=== PATIENT | female | born 1950 | race Caucasian/White ===

== ENCOUNTER 2020-02-13 15:44 | Emergency (ER) | payer MEDICARE ==
[~2020-02-13] VITALS: Ht 167.6 cm; Wt 64.0 kg
[~2020-02-13 15:44] MED LIST: ATIVAN1 MG PO; CHANTIX0.5 MG PO; DICLOFENAC SODI75 MG PO; HYDROCODON-ACE1 EA11 PO; LIPITOR20 MG PO; LISINOPRIL20 MG PO; LORAZEPAM1 MG PO; MIRAPEX0.25 MG PO; NORVASC10 MG PO; OMEPRAZOLE20 MG PO; PROMETHAZINE12.5 M1 PO; PROPRANOLOL HCL10 MG PO; SEREVENT DISKU1 PUFF INH; SERTRALINE HCL100 MG PO; TIZANIDINE HCL4 M1 PO; ZOLOFT100 MG
--- OUTSIDE RECORDS SUMMARY | 2020-02-13 15:48 | XMS ---
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 Virgie has no Care Guidelines for this patient. Zack VISIT COUNT (12 MO.) 1 [facility] Perez TOTAL 1 NOTE: Visits indicate total known visits. ED/UCC VISIT TRACKING (12 MO.) 02/13/2020 15:45 [facility] [place] TYPE: Emergency COMPLAINT: - WEAKNESS, FALL INPATIENT VISIT TRACKING (12 MO.) No inpatient visits to display in this time frame [id number]
--- NOTE | 2020-02-14 12:39 | EKG ---
[facility] [address] [facility] [place] [address] Signed Marked sinus bradycardia with marked sinus arrhythmia ST \T\ T wave abnormality, consider lateral ischemia Abnormal ECG When compared with ECG of 24-DEC-2018 15:52, T wave inversion now evident in Lateral leads Confirmed by CASTILLO VALENZUELA DO ([id number]) on 02/14/2020 12:39:12 PM Electronically Signed By: CASTILLO VALENZUELA DO 02/14/20 1239 PATIENT NAME: ANDREA SY KATHRYN Electrocardiogram DATE OF : 52 PHYSICIAN: CASTILLO VALENZUELA DO REPORT #: [id number] REPORT IS CONFIDENTIAL AND NOT TO BE RELEASED WITHOUT AUTHORIZATION
== END 2020-02-13 21:40 | disposition short-term general hospital (02) ==
LOC: ED 15:44
DX: S52.501A Unspecified fracture of the lower end of right radius, initial encounter for closed fracture (principal); R55 Syncope and collapse; Z20.828 Contact with and (suspected) exposure to other viral communicable diseases; R00.1 Bradycardia, unspecified; F17.200 Nicotine dependence, unspecified, uncomplicated; W00.0XXA Fall on same level due to ice and snow, initial encounter; Z88.2 Allergy status to sulfonamides; Z79.899 Other long term (current) drug therapy
CPT/HCPCS: 29125; 70450; 72125; 73110; 80053; 81001; 84484; 85025; 93005; 93010; 99285-25; C9803; G0480; J1170; J2405; U0003

== ENCOUNTER 2020-03-01 06:05 | Day surgery (SDC) | payer MEDICARE ==
[~2020-03-01] VITALS: Ht 167.6 cm; Wt 64.0 kg
[2020-03-01] MEDS ORDERED: HYDROCODON-ACE1 EA11 PO (11:33)
--- NOTE | 2020-03-04 07:39 | OR ---
[facility] [address] [place], [place] [address] Signed DATE OF OPERATION: SURGEON: Izaiah Louie MD PREOPERATIVE DIAGNOSIS: Displaced right distal radius fracture. POSTOPERATIVE DIAGNOSIS: Displaced right distal radius fracture. PROCEDURE PERFORMED: Closed reduction and percutaneous pinning of right distal radius. CROSSING GUARD: None. ANESTHESIA: MAC with local. BLOOD LOSS: Minimal. IMPLANTS: Three 1.6 mm K-wires. BRIEF HISTORY: Andrea is a 69-year-old female with pain in her wrist after a fall. She had a displaced angulated distal radius fracture. She was felt to be amenable to closed reduction and pinning. Consent was obtained after discussion of risks and benefits. DESCRIPTION OF PROCEDURE: Once consent was obtained, she was taken to the operating room. After adequate anesthesia, she was left on the day surgery cart and was prepped and draped in a standard sterile fashion. The C-arm was brought in and the fracture was reduced. She still had some dorsal tilt, so I did introduce a 2.0 K-wire into the fracture site using it as I was able to shoe horn the fracture back into a neutral alignment. While holding this, we then passed two pins from the distal radius at the styloid across the fracture site engaging the body of radius proximally. One pin was placed dorsally. Final radiographs showed good reduction and placement of the pins. The pins were then cut and dressed with sterile gauze. The arm was then placed in sterile cast padding and a radial gutter splint was made. She tolerated the procedure well. All sponge, needle, Electronically Signed By: IZAIAH LOUIE MD 03/04/20 0739 PATIENT NAME: ANDREA SY OPERATIVE REPORT DATE OF : 52 REPORT #: [id number] PHYSICIAN: IZAIAH LOUIE MD PCP: KEEGAN MCCLURE MD REPORT IS CONFIDENTIAL AND NOT TO BE RELEASED WITHOUT AUTHORIZATION [facility] [address] [facility] [place], [place] [address] Signed and instrument counts were correct. Izaiah Louie MD BA/MODL /[id number] Copies: ~ Electronically Signed By: IZAIAH LOUIE MD 03/04/20 0739 PATIENT NAME: ANDREA SY OPERATIVE REPORT DATE OF : 52 REPORT #: [id number] PHYSICIAN: IZAIAH LOUIE MD PCP: KEEGAN MCCLURE MD REPORT IS CONFIDENTIAL AND NOT TO BE RELEASED WITHOUT AUTHORIZATION
== END 2020-03-01 12:15 | disposition home or self-care (01) ==
LOC: DS 06:05
PROVIDERS: ATTEND Specialist
PROC: 3E0T33Z Introduction of Anti-inflammatory into Peripheral Nerves and Plexi, Percutaneous Approach (ICD-10-PCS; 2020-03-01)
PROC: 0PSH34Z Reposition Right Radius with Internal Fixation Device, Percutaneous Approach (ICD-10-PCS; principal; 2020-03-01 09:45)
PROC: 3E0T3BZ Introduction of Anesthetic Agent into Peripheral Nerves and Plexi, Percutaneous Approach (ICD-10-PCS; 2020-03-01 09:45)
DX: S52.531A Colles' fracture of right radius, initial encounter for closed fracture (principal); G89.18 Other acute postprocedural pain; I10 Essential (primary) hypertension; E78.00 Pure hypercholesterolemia, unspecified; F32.9 Major depressive disorder, single episode, unspecified; F41.9 Anxiety disorder, unspecified; F41.0 Panic disorder [episodic paroxysmal anxiety]; W19.XXXA Unspecified fall, initial encounter; Z88.2 Allergy status to sulfonamides; Z87.891 Personal history of nicotine dependence; Z79.899 Other long term (current) drug therapy; Z79.1 Long term (current) use of non-steroidal anti-inflammatories (NSAID); Z20.828 Contact with and (suspected) exposure to other viral communicable diseases
CPT/HCPCS: 01820; 64417; 73100; 76942; C9803; J0690; J1100; J2001; J2250; J2704; J2795; J7121; U0003

== ENCOUNTER 2020-11-18 08:11 | Emergency (ER) | payer MEDICARE ==
[~2020-11-18] VITALS: Ht 167.6 cm; Wt 64.0 kg
--- OUTSIDE RECORDS SUMMARY | 2020-11-18 08:14 | XMS ---
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 Virgie has no Care Guidelines for this patient. Zack VISIT COUNT (12 MO.) 2 WAQAS Perez TOTAL 2 NOTE: Visits indicate total known visits. 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 Bradycardia, unspecified 1. Sick sinus syndrome 2. Unspecified fracture of shaft of right ulna, initial encounter for closed fracture 3. Fall on same level, unspecified, initial encounter 4. Syncope and collapse 5. Hypertensive urgency 6. Essential (primary) hypertension 7. Anxiety disorder, unspecified 8. Major depressive disorder, single episode, unspecified 9. Nicotine dependence, cigarettes, uncomplicated 10. Hyperlipidemia, unspecified 11. Allergy status to sulfonamides 12. 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
[2020-11-18] MEDS ORDERED: BACLOFEN20 MG PO (08:40)
== END 2020-11-18 11:37 | disposition home or self-care (01) ==
LOC: ED 08:11
DX: R53.1 Weakness (principal); I10 Essential (primary) hypertension; F17.200 Nicotine dependence, unspecified, uncomplicated; Z88.2 Allergy status to sulfonamides; Z79.899 Other long term (current) drug therapy; W18.30XA Fall on same level, unspecified, initial encounter
CPT/HCPCS: 70450; 71046; 80053; 81001; 85025; 99285-25

== ENCOUNTER 2021-01-19 16:26 | Emergency (ER) | payer MEDICARE ==
[~2021-01-19] VITALS: Ht 167.6 cm; Wt 66.7 kg
[~2021-01-19 16:26] MED LIST changes: +BACLOFEN20 MG PO
--- OUTSIDE RECORDS SUMMARY | 2021-01-19 16:30 | XMS ---
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 Zack VISIT COUNT (12 MO.) 3 WAQAS Perez TOTAL 3 NOTE: Visits indicate total known visits. ED/UCC VISIT TRACKING (12 MO.) 01/19/2021 16:27 [facility] [place] TYPE: Emergency COMPLAINT: - ALTERED MENTAL STATUS 11/18/2020 08:12 [facility] [place] TYPE: Emergency COMPLAINT: - FALL, ALTERED MENTAL STATUS DIAGNOSES: - Allergy status to sulfonamides - Essential (primary) hypertension - Weakness - Fall on same level, unspecified, initial encounter - Nicotine dependence, unspecified, uncomplicated - Disorientation, unspecified - Other retirement (current) drug therapy 02/13/2020 15:45 [facility] [place] TYPE: Emergency COMPLAINT: - WEAKNESS, FALL DIAGNOSES: - Unspecified fracture of the lower end of right radius, initial encounter for closed fracture - Other retirement (current) drug therapy - Pain in right wrist - Nicotine dependence, unspecified, uncomplicated - Fall on same level due to ice and snow, initial encounter - Allergy status to sulfonamides - Allergy status to sulfonamides - Bradycardia, unspecified - Syncope and collapse - Contact with and (suspected) exposure to other viral communicable diseases INPATIENT VISIT TRACKING (12 MO.) 02/13/2020 23:04 Dalton [facility] TYPE: Medical Surgical COMPLAINT: - SYMPTOMATIC BRADYCARDIA [...] 11. Allergy status to sulfonamides 12. Other retirement (current) drug therapy [id number]
[2021-01-19] MEDS ORDERED: K-TAB ER20 MEQ PO (18:49)
[2021-01-19] MEDS ORDERED: ONDANSETRON ODT8 MG PO (19:02)
== END 2021-01-19 22:21 | disposition home or self-care (01) ==
LOC: ED 16:26
DX: K52.9 Noninfective gastroenteritis and colitis, unspecified (principal); E87.6 Hypokalemia; I10 Essential (primary) hypertension; E78.00 Pure hypercholesterolemia, unspecified; F17.200 Nicotine dependence, unspecified, uncomplicated; Z95.0 Presence of cardiac pacemaker; Z90.12 Acquired absence of left breast and nipple; Z90.710 Acquired absence of both cervix and uterus; Z88.2 Allergy status to sulfonamides; Z79.899 Other long term (current) drug therapy
CPT/HCPCS: 80053; 81001; 82140; 85025; 96374; 96375; 99284-25; J2405; J3480; J7121

== ENCOUNTER 2021-05-30 11:44 | Inpatient (IN) | payer MEDICARE ==
[~2021-05-30] VITALS: Ht 167.6 cm; Wt 60.7 kg
[~2021-05-30 11:44] MED LIST changes: +K-TAB ER20 MEQ PO; +ONDANSETRON ODT8 MG PO
--- OUTSIDE RECORDS SUMMARY | 2021-05-30 11:48 | XMS ---
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 Zack VISIT COUNT (12 MO.) Ananth Perez TOTAL 3 NOTE: Visits indicate total known visits. 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 [place] TYPE: Emergency COMPLAINT: - FALL, ALTERED MENTAL STATUS DIAGNOSES: - Allergy status to sulfonamides - Essential (primary) hypertension - Weakness - Fall on same level, unspecified, initial encounter - Nicotine dependence, unspecified, uncomplicated - Disorientation, unspecified - Other custodial (current) drug therapy INPATIENT VISIT TRACKING (12 MO.) No inpatient visits to display in this time frame [id number]
[2021-05-30] MEDS ORDERED: ATORVASTATIN CA20 MG PO (16:33)
[2021-05-30] MEDS ORDERED: FLUTICASONE-SA1 EAC4 INH (16:34)
[2021-05-30] MEDS ORDERED: QUETIAPINE FUMA50 MG PO (16:35)
[2021-05-30] MEDS ORDERED: AMLODIPINE BESYL5 MG PO (16:36)
--- NOTE | 2021-05-30 17:48 | NUR ---
PATIENT ARRIVED VIA STRETCHER FROM ER AT 1625 WITH ANDREA VIGIL. PATIENT MOVED HEERSELF OVER TO THE HOSPITAL BED. 1 LITER LR OVER 1HR IV STARTED. IV PROTONIX AND ZOFRAN GIVEN FOR NAUSEA. TYLENOL AND GI COCKTAIL GIVEN FOR 9/10 ABD PAIN. BOWEL TONES ACTIVE, LUNGS ARE CLEAR, SKIN IS INTACT WITH SCAB TO LEFT KNEE. PATIENT IS ALERT AND ORIENTED AT THIS TIME AND ALL ADMIT DATA GIVEN BY PATIENT AND HER GRANDDAUGHTER JHONNY WHO IS PATIENT'S CAREGIVER AND CONTACT. AWAITING TO SEE IF TYLENOL AND GI COCKTAIL HELP PAIN AT ALL. PATIENT INSTRUCTED PLUSH BRUSHER LIGHT AND TV REMOTE. CALL LIGHT IS IN REACH
--- NOTE | 2021-05-30 18:24 | NUR ---
PATIENT'S LAC IV LOOKING A LITTLE FLUFFY AFTER 1L LR BOLUS. 2ND 20G IV STARTED BY ANDREA GUEVARA IN THE RAC AND NEW MAINLINE FLUIDS D5LR AT 125MLS/HR SATRED IN RAC IV. PATIENT SAYS HER PAIN HAS DROPPED TO A 5/10 IN HER ABD AND PATIENT SAYS,"I FEEL COMFORTABLE NOW". PATIENT IMPULSIVE AND TRIES TO GET UP WITHOUT CALLING OR ASSISTANCE. BED ALARM IS NOW ON. PATIENT WAS UP TO THE [facility] COMMODE AND VOIDED 200MLS AND IS BACK IN BED AT THIS TIME. CALL LIGHT IN REACH.
--- NOTE | 2021-05-30 19:05 | NUR ---
BEDSIDE REPORT RECEIVED FROM OFFGOING RNDEMAR. PT RESTING IN BED WITH EYES CLOSED, WAKES EASILY. PARTICPATES IN REPORT. DENIES NEEDS AT THIS TIME. BED ALARM ACTIVE. CALL LIGHT IN REACH.
--- NOTE | 2021-05-30 19:48 | NUR ---
PT ASSESSMENT COMPLETE. PT RATES ABD 8/10 TO ABD, DESCRIBES AT PRESSURE IN THE ABD. DENIES NAUSEA. DENIES SOB. PT ORIENTED, DISCUSSING HER LIFE AND HISTORY OF PRESENT ILLNESS WITH THIS DIRECTOR TRUST. BT'S ACTIVE. PT REPORTS ABD TENDER TO PALPATION. IV FLUSHED X 2, PATENT, WNL. PT UP TO BSC WITH 1 PA AND BACK TO BED. TOLERATED WELL. PT DENIES FURTHER NEEDS AT THIS TIME. BED ALARM ACTIVE. CALL LIGHT IN REACH.
--- NOTE | 2021-05-30 19:50 | NUR ---
NOTIFIED OF PT REPORTS OF CONTINUED ABD PAIN AND REQUEST FOR HOME MEDS.
--- NOTE | 2021-05-30 21:15 | NUR ---
BUSINESS LIBRARIAN AND BEAM CARRIER HAULER PUSHER AT BEDSIDE FOR EKG. PTS DAUGHTER PRESENT AT PTS BEDSIDE. UPDATE PROVIDED. PT DENIES FURTHER NEEDS AFTER PROCEDURE FINISHED. SOCIAL SERVICES ANALYST PRESENT FOR BLOOD DRAW. CALL LIGHT IN REACH. BED ALARM ACTIVE.
--- NOTE | 2021-05-30 23:38 | NUR ---
BED ALARM SOUNDING. 1PA TO BSC TO VOID 250 ML YELLOW URINE. PT ABLE TO DO OWN CORIN CARE. GAIT WEAK. BACK TO BED, LISS WELL. DENIES FURTHER NEEDS. BED ALARM FOR SAFETY. CALL LIGHT IN REACH.
--- NOTE | 2021-05-31 00:10 | NUR ---
PT RESTING IN BED WITH EYES CLOSED. DOES NOT WAKE WHEN GAME DESIGNER/CREATIVE DIRECTOR ENTERS THE ROOM. CALL LIGHTIN REACH. BED ALARM ACTIVE.
--- NOTE | 2021-05-31 01:33 | NUR ---
PT UTLIZIES CALL LIGHT, REQUESTS TO USE THE BATHROOM. PT UP TO BSC AND BACK TO BED WITH 1 PA, TOLERATED WELL. PT ASSESSMENT COMPLETE. PT STATES THAT ABD PAIN IS SIGNIFICANTLY IMPROVED FROM EARLIER. DENIES NAUSEA OR SOB. PT DROWSY THROUGHOUT ASSESSMENT. ABD TENDER TO PALPATION. IVF INFUSING ORDERED. PT DENIES FURTHER NEEDS. CALL LIGHT IN REACH. BED ALARM ACTIVE.
--- NOTE | 2021-05-31 03:00 | NUR ---
PT UTLIZES CALL LIGHT, REQUESTS ATIVAN. PT REPORTS AXIETY, INABILITY TO SLEEP. PRN ADMINISTERED. SEE EMAR. PT DENIES FURTHER NEEDS. CALL LIGHT IN REACH.
--- NOTE | 2021-05-31 04:00 | NUR ---
PT RESTING IN BED WITH EYES CLOSED. RESPIRATIONS EVEN AND UNLABORED. PT APPEARS TO BE SLEEPING. CALL LIGHT IN REACH. BED ALARM ACTIVE.
--- NOTE | 2021-05-31 07:30 | NUR ---
SHIFT REPORT GIVEN TO THIS RN BY ANDREA BERNARD. PATIENT RESTING QUIETLY ON HER RIGHT SIDE, EYES ARE CLOSED, RESPIRATIONS ARE REGULAR AND EVEN, BED ALARM IS ON, AND CALL LIGHT IS IN REACH. PATIENT HAS NO NOTED CARE NEEDS AT THIS TIME.
--- NOTE | 2021-05-31 09:03 | NUR ---
PATIENT HAS C/O 9/10 ABD PAIN AND NAUSEA. SIVP ZOFRAN GIVEN AND PO TYLENOL AND OXYCODONE GIVEN. PATIENT IS UP IN THE BEDSIDE ARMCHAIR AT THIS TIME TRYING TO DRINK A LITTLE BREAKFAST. PATIENT HAS NO OTHER CARE NEEDS AT THIS TIME AND CALL LIGHT IS IN REACH.
--- NOTE | 2021-05-31 09:20 | NUR ---
Spoke with Trinidad. She states she lives in [place] in a 3 story home. She only uses the main floor and there are no steps. She states her granddau modesto lives with her and her spouse and is the caregiver. Granddaughter provides full care. Pt does states she drinks large amounts of alcohol. She does agree to speak with KANDY and I called the Crisis line and building insulation installerfield contact person will visit her today. Pt does not want to go to a SNF for rehab. Would prefer to have HH in her home if she needs PT. States she was in [facility] 1 year ago and does not want to go back. Would consider a different SNF.
--- NOTE | 2021-05-31 09:38 | NUR ---
THIS RN RECEIVED NEW ORDERS FOR PO K+ FOR PATIENT WHICH WAS GIVEN ALONG WITH SOME MAALOX AND HER CARAFATE. PATIENT SAYS HER ABD PAIN IS DOWN TO ABOUT 7/10 AT THIS TIME. CALL LIGHT IN REACH AND BED ALARM ON. PATIENT HAS NO OTHER CARE NEEDS AT THIS TIME. PATIENT'S NAUSEA IS ALSO GONE.
--- NOTE | 2021-05-31 10:18 | NUR ---
PATIENT'S PAIN IS DOWN TO 6/10 AT THIS TIME AND SHE IS FAIRLY COMFORTABLE AT THE MOMENT. SHIMA KIMBALL NROOM WITH PATIENT DOING CARES AT THIS TIME. CALL LIGHT IN REACH AND BED ALARM IS ON.
--- NOTE | 2021-05-31 10:19 | NUR ---
PATIENT IN BED RESTING. VITALS AND I&O'S CHARTED. CALL LIGHT IN REACH. NO FURTHER NEEDS AT THIS TIME.
--- NOTE | 2021-05-31 11:20 | NUR ---
PATIENT CALLED HAVING 10/10 ABD PAIN AND EXTREMELY ANXOIUS. PATIENT GIVEN 1MG PO ATIVAN FOR THE ANXIETY AND THIS RN TALKED WITH ABOUT PATIENT'S PAIN PATIENT IS CRYING AND I HAVE NO OTHER MEDICATIONS TO GIVE HER AT THIS TIME. IS ORDERING ABD CT AND ORDERING A GI COCKTAIL WHICH SEEMED TO HELP THE PATIENT YESTERDAY. PATIENT INFORMED MEDICATION WILL BE COMING SHORTLY. CALL LIGHT IN REACH.
[2021-05-31] MEDS ORDERED: BACLOFEN20 MG PO (11:35)
[2021-05-31] MEDS ORDERED: DICLOFENAC SODI75 MG PO (11:35)
--- NOTE | 2021-05-31 11:36 | NUR ---
THIS RN GAVE PATIENT A GI COCKTAIL AND THE PAIN IN HER STOMACH IS GETTING BETTER. PATIENT ALSO GIVEN ORAL DYE IN WATER FOR HER CT SCAN AT 1330. CALL LIGHT IN REACH AND BED ALARM IS ON. PATIENT HAS NO OTHER CARE NEEDS FROM THIS RN AT THIS TIME.
--- NOTE | 2021-05-31 11:36 | NUR ---
MED REC COMPLETED
--- NOTE | 2021-05-31 11:41 | NUR ---
PT ALERT, ORIENTED-SPOKE IN QUIET VOICE. PT WOULD LIKE TO VISIT WITH FR ALLEN TODAY. WILL INFORM HIM. EARLE LUNA, LEFT G.POST. WILL FOLLOW
--- NOTE | 2021-05-31 11:56 | NUR ---
THIS RN 1PA pT UP TO THE BEDSIDE COMMODE AND BACK TO BED AFTER PATIENT VOIDED. PATIENT STILL EXTREMELY UNSTEADY ON HER FEET. BED ALARM IS BACK ON AND CALL LIGHT IS IN REACH. PATIENT HAS NO OTHER CARE NEEDS AT THIS TIME.
--- NOTE | 2021-05-31 12:43 | NUR ---
SECOND GASTROGRAFIN IN GRAPE JUICE GIVEN. PATIENT HAS BEEN TAKING PO WELL AND HER PAIN IS CONTROLLED AT THIS TIME. GRANDDAUGHTER IS HERE VISITING. CALL LIGHT IS IN REACH.
--- NOTE | 2021-05-31 13:55 | NUR ---
LUCIANA IS BACK FROM CT. IV RECONNECTED. PATIENT UP TO THE BSC 1PA WITH LIQUID STOOL AND URINE. PATIENT BACK IN BED. BED ALARM ON. PATIENT'S PAIN IS DOWN TO 4/10 AND SHE IS NOT NAUSEATED AT THIS TIME. CALL LIGHT IS IN REACH. FILLED OUT SOME PAPERWORK FOR PATIENT'S GRANDDAUGHTER SKIEE AND THIS RN LEFT IT IN THE PATIENT'S ROOM ON THE BEDSIDE DRESSER.
--- NOTE | 2021-05-31 13:55 | NUR ---
PATIENT UP TO BSC AND BACK TO SITTING ON EDGE OF BED. IMAGINE HERE TO TAKE HER TO CT. VITALS AND I&O'S DONE.
--- NOTE | 2021-05-31 14:34 | NUR ---
pT BED ALARM GOING OFF, TRYING TO GET OUT OF BED. UP TO BSC, UNSTEADY GAIT. LIQUID BM NOTED, BACK TO BED, COOPERATIVE, BED ALARM ON
--- NOTE | 2021-05-31 15:00 | NUR ---
Spoke with KANDY about another pt, updated by Peer, Trinidad refused their visit when they arrived to speak with her.
--- NOTE | 2021-05-31 15:17 | NUR ---
THIS RN 1PA TO THE BED SIDE COMMODE AND BACK TO BED WITH BED ALARM ON. PATIENT VOIDED A SMALL AMOUNT AND HAD MORE SPEARS LIQUID BROWN STOOL WITH A FEW CHUNCKS. PATIENT CALL LIGHT IS IN REACH. PATIENT HILL NO FURTHER NEEDS AT THIS TIME.
--- NOTE | 2021-05-31 15:45 | NUR ---
PATIENT IN BED, AWAKE, PRETTY ALERT AND WATCHING TV. SHE IS ON A CLEAR LIQUID DIET. PATIENT LIVES WITH HER AND HER GRANDDAUGHTER HELPS THEM. SHE HAS NOT EATEN ANYTHING SINCE FRIDAY 05/26. SHE HAS A HISTORY OF DRINKING 2 SHOTS OF HARD LIQUOR DAILY. SHE IS NOT A MORNING PERSON SO RARELY EATS BREAKFAST. SHE WILL DRINK PEPSI IN THE MORNING. SOMETIMES DOES NOT EAT LUNCH BUT IF SHE DOES IT MIGHT BE A BOLOGNA SANDWICH. DINNER IS HER BIGGEST MEAL. SHE DOES NOT SNACK MUCH. PATIENT HAS NO TEETH, HER UPPER DENTURES ARE AT HOME. SHE ONLY HAS 8 BOTTOM TEETH. PATIENT STATES HER WEIGHT IS NORMALLY 144-146 LBS. SHE WEIGHED 133 LBS ON ADMIT. SHE APPEARS TO MEET CRITERIA FOR ACUTE MALNUTRITION DUE TO POOR PO INTAKE (<25% OF NORMAL INTAKE) THE PAST 5 DAYS AND ~11-13 LB WEIGHT LOSS. SHE WILL NEED EASY TO CHEW FOODS DUE TO NO UPPER TEETH AND ONLY 8 BOTTOM TEETH. WILL SEE HOW PATIENT DOES HER DIET ADVANCES. WILL CONTINUE TO MONITOR.
--- NOTE | 2021-05-31 16:28 | NUR ---
THIS PATIENT CALLED AND WANTED SOMETHING TO EAT. PUDDING GIVEN TO PATIENT WITH HER EVENING MEDS. PATIENT HAS NO OTHER CARE NEEDS AT THIS TIME. BED ALARM ON AND CALL LIGHT IS IN REACH.
--- NOTE | 2021-05-31 18:00 | NUR ---
PATIENT WALKED INTO THE BATHROOM WITH ANDREA GUEVARA AND BACK TO BED. PATIENT IS GETTING MORE STEADY. PATIENT ATE ALL HER PREVIOUS PUDDING ANS ASKED THIS RN FOR SOME MORE, WHICH WAS GIVEN. PAIN AND NAUSEA ARE CONTRLLED AT THIS TIME. PATIENT HAD NO OTHE CARE NEEDS. CALL LIGHT IS IN REACH AND BED ALARM IS ON.
--- NOTE | 2021-05-31 18:14 | NUR ---
PATIENT SITTING UP IN BED WATCHING TV. VITALS AND I&O'S CHARTED. CALL LIGHT IN REACH. NO FURTHER NEEDS AT THIS TIME.
--- NOTE | 2021-05-31 19:28 | NUR ---
REPORT RECEIVED FROM DAY SHIFT RN. PT LYING IN BED ALERT AND ORIENTED. DENIES NEEDS AT THIS TIME. WHITE BOARD UPDATED. CALL LIGHT IN REACH. BED ALARM FOR SAFETY.
--- NOTE | 2021-05-31 20:11 | NUR ---
CALL LIGHT ANSWERED. PT REPORTS 10/10 HEADACHE AND BACK PAIN. PRN ADMIN PER EMAR. FAMILY AT BEDSIDE. NO FURTHER NEEDS.
--- NOTE | 2021-05-31 20:27 | NUR ---
CALL LIGHT ANSWERED. SBA TO RESTOOM FOR VOID AND BACK TO BED. INCONTINENCE IN ATTENDS. ATTENDS CHANGED. IVF INFUSING WNL. BED ALARM ON. pt DENIES ADDITIONAL NEEDS. CALL LIGHT NEXT TO pt.
--- NOTE | 2021-05-31 21:45 | NUR ---
EVENING ASSESSMENT COMPLETE. SCHEDULED MEDS ADMINISTERED PER EMAR. PT REPORTS HEADACHE/BACK PAIN IMPROVED. DENIES NAUSEA. ASSISTED TO REPOSITION IN BED. IVF INFUSING WNL. PT DENIES QUESTIONS OR CONCERNS. CALL LIGHT IN REACH. BED ALARM FOR SAFETY.
--- NOTE | 2021-06-01 00:50 | NUR ---
PT RESTING IN BED WITH EYES CLOSED LYING ON RIGHT SIDE. RESPIRATIONS EVEN. BED ALARM ON.
--- NOTE | 2021-06-01 01:40 | NUR ---
PATIENT CALLED TO USE THE BATHROOM. SBA. PATIENT IS BACK IN BED. VOIDED 350ML. BED ALARM ON FOR SAFETY. NO OTHER NEEDS AT THIS TIME. CALL LIGHT WITHIN REACH.
--- NOTE | 2021-06-01 02:16 | NUR ---
IV PUMP ALARMING. NEW BAG IVF INFUSING PER ORDER. PT DENIES PAIN. REPORTS NAUSEA. PRN FOR N/V ADMIN PER EMAR. ASSESSMENT COMPLETE. NO FURTHER NEEDS. CALL LIGHT IN REACH. BED ALARM FOR SAFETY.
--- NOTE | 2021-06-01 03:57 | NUR ---
PT RESTING IN BED WITH EYES CLOSED. RESPIRATIONS EVEN. BED ALARM FOR SAFETY.
--- NOTE | 2021-06-01 04:26 | NUR ---
TAKING OVER CARE FROM PREVIOUS RN. PT IN BED, LIGHTS OUT, RESP EVEN AND UNLABORED, LAYING ON HER BACK/RIGHT SIDE. IV INFUSING PER ORDER.
--- NOTE | 2021-06-01 06:58 | NUR ---
VS DONE NEAR 0640. PT DENIED NEEDING TO USE BATHROOM, DID TAKE MEDICATION. NO OTHER NEEDS AT THIS TIME. BEDALARM PLACED.
--- NOTE | 2021-06-01 07:25 | NUR ---
THIS RN RECEIVED SHIFT REPORT FROM ANDREA ANDRADE. THIS RN WENT IN TO SEE PATIENT. PATIENT'S PAIN IS 4/10 AT THIS TIME AND IS CONTROLLED. AM ASSESSMENT COMPLETE. PATIENT DENIES ANY CARE NEEDS AT THIS TIME AND CALL LIGHT IS IN REACH. BED ALARM IS ON.
--- NOTE | 2021-06-01 08:44 | NUR ---
PATIENT UP TO BR FOR VOID WITH SBA AND BACK TO BED PER PATIENT REQUEST FOR BREAKFAST. LINEN CHANGED. FRESH ICE WATER PROVIDED. FACE AND HANDS WASHED. PATIENT "POSSIBLY" WANT TO SHOWER TODAY.. BUT STATES SHE WOULD RATHER SHOWER AT HOME. CALL LIGHT IN EASY REACH, BED ALARM ON FOR SAFETY
--- NOTE | 2021-06-01 09:35 | NUR ---
PATIENT CALLED AND IS HAVING 9/10 HILL/ABD PAIN. PO OXYCODONE AND TYELNOL GIVEN. PATIENT ALSO VERY ANXIOUS SO 1MG ATIVAN GIVEN. PATIENT ALSO NAUSEATED SO SIVP ZOFRAN GIVEN. ALL OTHER AM MEDS GIVEN AND MG+ RIDER STARTED. PATIENT DENIED ANY OTHER CARE NEEDS AT THIS TIME. CALL LIGHT IS IN REACH.
--- NOTE | 2021-06-01 11:08 | NUR ---
PATIENT'S HILL IS GONE, BUT ABD PAIN STILL 4/10. THIS RN 1PSBA WITH QUAD CANE FOR PATIENT ASSISTED TO THE RESTROOM WHERE PATIENT VOIDED THEN STOOD AT THE SINK AND BRUSHED HER TEETH THEN WALKED BACK TO BED. BED ALARM IS ON AND CALL LIGHT IS IN REACH. PATIENT HAS NO OTHER CARE NEEDS AT THIS TIME.
--- NOTE | 2021-06-01 13:15 | NUR ---
PATIENT JUST FINISHED TALKING WITH MARIEL FROM CASE MANAGEMENT/DISCHARGE PLANNING. PATIENT DOES NOT WANT TO WORK WITH KANDY ABOUT HER DRINKING AND DOES NOT WANT TO GO ANYWHERE FOR REHAB. PATIENT RESTING IN BED AND DID NOT EAT ANY OF HER LUNCH. PATIENT DENIES ANY CARE NEEDS AT THIS CALL LIGHT IS IN REACH.
--- NOTE | 2021-06-01 13:45 | NUR ---
Spoke with Trinidad and she states she just wants to go home. Will go home with her spouse and granddaughter will care for them. Discussed if she can walk safely and she denies issue. Per RN she is a 1 person assist. Will check with Dr. Curran to see if he would like a PT eval.
--- NOTE | 2021-06-01 13:45 | NUR ---
PATIENT CALLED HAVING 9/10 ABD PAIN AND NAUSEA AGAIN WITH A HILL. 10MG SIVP COMPAZINE GIVENA AND A GI COCKTAIL WHICH HAS REALLY HELPED HE IN PAST DOSES. THIS RN 1PSBA AND QUAD CANE TO THE RESTROOM AND BACK TO BED. BED ALARM IS ON. PATIENT DENIES ANY OTHER CARE NEEDS AT THIS TIME. CALL LIGHT IS IN REACH.
--- NOTE | 2021-06-01 15:58 | NUR ---
PATIENT CALLED AND THIS RN IN AND 1PSBA PATIENT WITH QUAD CANE INTO THE BATHROOM TO VOID AND HAVE BM AND BACK TO BED. 1600 MEDS GIVEN. BED ALARM IS ON. AFTERNOON ASSESSMENT COMPLETE. CALL LIGHT IN REACH AND PATIENT'S ABD PAIN CONTROLLED AT A 4/10.
--- NOTE | 2021-06-01 17:50 | NUR ---
COMING IN TO SEE PATIENT. DISCUSSED WITH THAT PATIENT HAS JUST NOT WANTED TO EAT. SAID TO DC THE IV FLUIDS FOR NOW AND ENCOURAGE THE PATIENT TO EAT. DINNER TRAY IS HERE AND PATIENT DOES NOT LIKE MUSHROOM SOUP SO KITCHEN WAS CALL FOR SOME CHICKEN NOODLE WHICH THEY ARE SENDING UP. PATIENT HAS ALREADY EATEN HER ICECREAM AND PATIENT'S GREATER [facility] AARIVING TO VISIT. IV FLUIDS WERE DC'D AND RAC IV WAS LEAKING SO IT WAS REMOVED INTACT WELL. PATIENT STILL HAS A NS LOCKED LAC IV IN PLACE. INFORMED THIS RN LONG PATIENT EATS TONIGHT AND EATS IN THE MORNING SHE CAN GO HOME TOMORROW. PATIENT LOOKING FORWARD TO THIS. CALL LIGHT IS IN REACH.
--- NOTE | 2021-06-01 17:57 | NUR ---
Intake and output completed, Patient requested pain medications. Oxycodone given.
--- NOTE | 2021-06-01 19:30 | NUR ---
SHIFT REPORT RECEIVED FROM DEMAR MENDEZ. PT RESTING IN BED. NO NEEDS AT THIS TIME. CALL LIGHT IN REACH.
--- NOTE | 2021-06-01 20:30 | NUR ---
PT CALLED, SBA TO BATHROOM WITH FWW. INDEPENDENT WITH TRANSFERS IN AND OUT OF BED. ALL PERSONAL SUPPLIES WITHIN REACH. NO OTHER NEEDS. FAMILY MEMBER AT BEDSIDE.
--- NOTE | 2021-06-01 21:15 | NUR ---
ASSESSMENT COMPLETED. DAUGHTER IN ROOM. GCS 15, A&O X 4 BUT FORGETFUL. LUNGS CLEAR, HEART TONES REGULAR. ABD SOFT, TENDER, BOWEL TONES ACTIVE. CMS INTACT. SCAB NOTED ON LEFT KNEE. SCATTERED BRUISING NOTED. IV WNL. CDI, FLUSHED WELL. SCHEDULED MEDS PROVIDED. NO OTHER NEEDS. CALL LIGHT IN REACH.
--- NOTE | 2021-06-01 22:29 | NUR ---
PT REPORTS FEELING ANXIOUS, PRN ANXIETY MED PROVIDED. NO OTHER NEEDS. CALL LIGHT IN REACH. BED ALARM ON.
--- NOTE | 2021-06-01 23:54 | NUR ---
PT RESTING IN BED, EYES CLOSED. RR EVEN, UNLABORED. BED ALARM ON, CALL LIGHT IN REACH.
--- NOTE | 2021-06-02 01:53 | NUR ---
PT RESTING INBED, EYES CLOSED. RR EVEN, UNLABORED. CALL LIGHT IN REACH. BED ALARM ON.
--- NOTE | 2021-06-02 04:24 | NUR ---
ASSESSMENT COMPLETED. IVs WNL. PT DENIES PAIN AND NAUSEA. ABD SOFT, TENDER, BOWEL TONES ACTIVE. ICE WATER PROVIDED. NO OTHER NEEDS. CALL LIGHT IN REACH.
--- NOTE | 2021-06-02 06:32 | NUR ---
VS AND I&O COMPLETED. SCHEDULED MED PROVIDED. PT DENIES NAUSEA AND PAIN AT THIS TIME. PT UP TO BR AND BACK TO BED, SBA FWW. NO OTHER NEEDS. CALL LIGHT IN REACH.
--- NOTE | 2021-06-02 07:46 | NUR ---
Bedside shift report deferred. Patient is sleeping at this time. Shift report completed outside the room. She is potentially going home if she is able to eat her breakfast this AM, have nausea controlled, and able to ambulate safely with her walker
--- NOTE | 2021-06-02 09:50 | NUR ---
Zofran IV given for nausea, along with AM medications at the patient request. Updated her on the plan of care for today, with a potential discharge on henry.
--- NOTE | 2021-06-02 11:30 | NUR ---
Spoke with Trinidad. She is feeling better and plans on dc to home with her spouse. Her granddaughter and her boyfriend live with them. There is also a friend who lives with them at times. Pt plans on stopping alcohol and she has discussed with her spouse and he has agreed to stop with her. We did discuss DTs as per pt, spouse drinks all day long. I gave her the card for KANDY and encouraged her to call if they have any problems when they stop alcohol. I also suggested she speak with family that buy the alcohol and ask them to stop.
--- NOTE | 2021-06-02 11:41 | EKG ---
[facility] [address] [facility] [place] [address] Signed Normal sinus rhythm Normal ECG When compared with ECG of 13-FEB-2020 15:46, Vent. rate has increased BY 25 BPM T wave inversion no longer evident in Lateral leads Confirmed by KEVIN YARBROUGH MD ([id number]) on 06/02/2021 11:41:34 AM Electronically Signed By: KEVIN YARBROUGH MD 06/02/21 1141 PATIENT NAME: KERRIEANDREA Electrocardiogram DATE OF : 52 PHYSICIAN: KEVIN YARBROUGH MD REPORT #: [id number] REPORT IS CONFIDENTIAL AND NOT TO BE RELEASED WITHOUT AUTHORIZATION
--- NOTE | 2021-06-02 11:42 | EKG ---
[facility] [address] [facility] [place], [place] [address] Signed Normal sinus rhythm Normal ECG No previous ECGs available Confirmed by KEVIN YARBROUGH MD ([id number]) on 06/02/2021 11:42:02 AM Electronically Signed By: KEVIN YABRROUGH MD 06/02/21 1142 PATIENT NAME: ANDREA SY KATHRYN Electrocardiogram DATE OF : 52 PHYSICIAN: KEVIN YARBROUGH MD REPORT #: [id number] REPORT IS CONFIDENTIAL AND NOT TO BE RELEASED WITHOUT AUTHORIZATION
--- NOTE | 2021-06-02 14:15 | NUR ---
Tylenol given for pain in her back. No additional needs at this time.
--- NOTE | 2021-06-02 15:45 | NUR ---
1600 Medications given, advised the patient that in was too early for pain medications at this time, she verbalized understanding and has no additional needs at this time.
--- NOTE | 2021-06-02 16:10 | NUR ---
Patient ambulated with the FWW approximately 200 ft. C/O back pain now since she ambulated, will give pain medication.
--- NOTE | 2021-06-02 17:18 | NUR ---
patient ambulated another 200 ft., back pain increased however it is too early for her tylenol and she verbalizes understanding
--- NOTE | 2021-06-02 18:11 | NUR ---
Patient resting in the bed wathcing TV, pain slightly better.
--- NOTE | 2021-06-02 19:30 | NUR ---
SHIFT REPORT RECEIVED FROM AHSAN MENDEZ. PT RESTING IN BED. NO NEEDS AT THIS TIME. CALL LIGHT IN REACH.
--- NOTE | 2021-06-02 20:35 | NUR ---
IN TO GET VS WITH RN, ICE WATER REFRESHED, NO FURTHER NEEDS AT THIS TIME
--- NOTE | 2021-06-02 21:00 | NUR ---
ASSESSMENT COMPLETED. SCHEDULED MEDS PROVIDED. PRN G.I. COCKTAIL PROVIDED FOR GASTRIC UPSET. GCS 15. A&O X4. PT INDEPENDENT IN ROOM WITH FWW. LUNGS CLEAR, HEART TONES REGULAR. ABD SOFT, MILDLY DISTENDED, TENDER, BOWEL TONES ACTIVE. CMS INTACT. IV CDI, WNL, FLUSHED WELL. ICE WATER PROVIDED. NO OTHER NEEDS AT THIS TIME. CALL LIGHT IN REACH.
--- NOTE | 2021-06-02 21:54 | NUR ---
PT REPORTS ANXIETY, PRN ANXIETY MED PROVIDED. NO OTHER NEEDS. CALL LIGHT IN REACH.
--- NOTE | 2021-06-03 | NUR ---
PT RESTING IN BED, EYES CLOSED. RR EVEN, UNLABORED. CALL LIGHT IN REACH.
--- NOTE | 2021-06-03 01:48 | NUR ---
PT RESTING IN BED, EYES CLOSED. RR EVEN, UNLABORED. CALL LIGHT IN REACH.
--- NOTE | 2021-06-03 03:45 | NUR ---
PT AWAKE IN ROOM. ASSESSMENT COMPLETED. PT DENEIS PAIN AND NAUSEA. IV WNL. ICE WATER AND HOT COCOA PROVIDED. NO OTHER NEEDS. CALL LIGHT IN REACH.
--- NOTE | 2021-06-03 05:12 | NUR ---
PT RESTING IN BED, WATCHING TV. NO NEEDS AT THIS TIME. CALL LIGHT IN REACH.
--- NOTE | 2021-06-03 06:53 | NUR ---
SCHEDULED MEDS PROVIDED. NO OTHER NEEDS AT THIS TIME. CALL LIGHT IN REACH.
--- NOTE | 2021-06-03 08:30 | NUR ---
Patient doing well this morning, no distress. Patient educated on plan of care for bladder training, pt receptive to plan. Patient has been up to void this morning, 80ml clear yellow urine noted with a post bladder scan reading of 116ml. Provider in at this time to see patient, updated her on most recent void. Patient encouraged to attempt to void hourly. No current needs. Personal supplies and call light within reach.
--- NOTE | 2021-06-03 08:33 | NUR ---
Tylenol 500mg po admin for reports of 6/10 headache pain.
--- NOTE | 2021-06-03 10:02 | NUR ---
Admin 35ml of GI cocktail for reported gi upset.
--- NOTE | 2021-06-03 10:30 | NUR ---
Pt dressed and walking in [place]. Plans on dc to home with spouse and her granddaughter. Denies needs.
[2021-06-03] MEDS ORDERED: LIDOCAINE HCL100 ML MT (11:07)
[2021-06-03] MEDS ORDERED: [UNRECOGNIZED DRUG - OTHER] PO (11:10)
[2021-06-03] MEDS ORDERED: SUCRALFATE1 GM PO (11:17)
[2021-06-03] MEDS ORDERED: PANTOPRAZOLE SO40 MG PO (11:20)
== END 2021-06-03 13:30 | disposition home or self-care (01) | DRG 392 ==
LOC: ED 11:44 → MS 11:47
PROVIDERS: ADMIT Internal Medicine; ATTEND Internal Medicine
DX: K29.20 Alcoholic gastritis without bleeding (principal); E87.2 Acidosis; T73.0XXA Starvation, initial encounter; F10.20 Alcohol dependence, uncomplicated; Z20.822 Contact with and (suspected) exposure to COVID-19; I10 Essential (primary) hypertension; E78.5 Hyperlipidemia, unspecified; E86.0 Dehydration; F41.9 Anxiety disorder, unspecified; D73.89 Other diseases of spleen; M19.90 Unspecified osteoarthritis, unspecified site; E78.00 Pure hypercholesterolemia, unspecified; Z87.440 Personal history of urinary (tract) infections; Z90.12 Acquired absence of left breast and nipple; Z95.0 Presence of cardiac pacemaker; Z90.710 Acquired absence of both cervix and uterus; Z88.2 Allergy status to sulfonamides; Z79.899 Other long term (current) drug therapy
CPT/HCPCS: 36415; 70450; 74177; 80048; 80053; 81001; 82010; 82803; 83690; 83735; 84484; 85025; 93005; 93010; 96372; 96374; 96376; 97161; 99285-25; A9270; C9113; C9803; G0378; G0480; J0780; J1650; J2405; J3475; J7030; J7121; Q9967; U0003

== ENCOUNTER 2021-06-13 06:14 | Emergency (ER) | payer MEDICARE ==
[~2021-06-13] VITALS: Ht 167.6 cm; Wt 68.5 kg
[~2021-06-13 06:14] MED LIST changes: +AMLODIPINE BESYL5 MG PO; +ATORVASTATIN CA20 MG PO; +FLUTICASONE-SA1 EAC4 INH; +LIDOCAINE HCL100 ML MT; +MAG-AL LIQUID30 ML PO; +PANTOPRAZOLE SO40 MG PO; +QUETIAPINE FUMA50 MG PO; +SUCRALFATE1 GM PO; +[UNRECOGNIZED DRUG - OTHER] PO
--- OUTSIDE RECORDS SUMMARY | 2021-06-13 06:33 | XMS ---
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 - 2 Visits in 30 Days [facility] KEEGAN MCCLURE [facility] 11/18/2020-Current PHONE: Unknown [facility] Current PHONE: Unknown Virgie has no Care Guidelines for this patient. ENakul VISIT COUNT (12 MO.) [address] [place] [address] TOTAL 5 NOTE: Visits indicate total known visits. ED/UCC VISIT TRACKING (12 MO.) 06/13/2021 06:18 [facility] [place] TYPE: Emergency COMPLAINT: - ABD PAIN 06/06/2021 19:35 [facility] [place] TYPE: Emergency COMPLAINT: - ABDOMINAL PAIN 05/30/2021 11:46 [facility] [place] TYPE: Emergency COMPLAINT: - ALTERED MENTAL STATUS 01/19/2021 16:27 [facility] [place] TYPE: Emergency COMPLAINT: - ALTERED MENTAL STATUS DIAGNOSES: - Acquired absence of left breast and nipple - Essential (primary) hypertension - Acquired absence of both cervix and uterus - Other oysterman (current) drug therapy - Nicotine dependence, unspecified, uncomplicated - Allergy status to sulfonamides - Noninfective gastroenteritis and colitis, unspecified - Hypokalemia - Presence of cardiac pacemaker - Syncope and collapse - Pure hypercholesterolemia, unspecified 11/18/2020 08:12 [facility] [place] TYPE: Emergency COMPLAINT: - FALL, ALTERED MENTAL STATUS DIAGNOSES: - Allergy status to sulfonamides - Essential (primary) hypertension - Weakness - Fall on same level, unspecified, initial encounter - Nicotine dependence, unspecified, uncomplicated - Disorientation, unspecified - Other jail (current) drug therapy INPATIENT VISIT TRACKING (12 MO.) 06/07/2021 01:01 [facility] [place] TYPE: Observation COMPLAINT: - ALTERED MENTAL STATUS, ABDOMINAL PAIN DIAGNOSES: - Contact with and (suspected) exposure to COVID-19 - Dehydration - Nicotine dependence, unspecified, uncomplicated - Unspecified chronic bronchitis - Metabolic encephalopathy - Hyperlipidemia, unspecified - Essential (primary) hypertension - Anxiety disorder, unspecified - Allergy status to sulfonamides - Alcoholic gastritis without bleeding 05/31/2021 13:19 [facility] [place] TYPE: Medical Surgical COMPLAINT: - STARVATION KETOACIDOSIS,GASTRITIS,INABILITY TO WRK DIAGNOSES: - Other oysterman (current) drug therapy - Acidosis - Anxiety disorder, unspecified - Hyperlipidemia, unspecified - Unspecified osteoarthritis, unspecified site - Dehydration - Acquired absence of both cervix and uterus - Personal history of urinary (tract) infections - Acquired absence of left breast and nipple - Starvation, initial encounter - Presence of cardiac pacemaker - Alcohol dependence, uncomplicated - Other diseases of spleen - Other diseases of spleen - Essential (primary) hypertension - Unspecified osteoarthritis, unspecified site - Acquired absence of left breast and nipple - Pure hypercholesterolemia, unspecified - Alcohol dependence, uncomplicated - Dehydration - Other jail (current) drug therapy - Anxiety disorder, unspecified - Allergy status to sulfonamides - Pure hypercholesterolemia, unspecified - Personal history of urinary (tract) infections - Contact with and (suspected) exposure to COVID-19 - Hyperlipidemia, unspecified - Alcoholic gastritis without bleeding - Acquired absence of both cervix and uterus - Essential (primary) hypertension - Acidosis - Contact with and (suspected) exposure to COVID-19 - Presence of cardiac pacemaker - Allergy status to sulfonamides - Alcoholic gastritis without bleeding [email or web address]
== END 2021-06-13 16:17 | disposition home or self-care (01) ==
LOC: ED 06:14
DX: K29.70 Gastritis, unspecified, without bleeding (principal); F03.90 Unspecified dementia, unspecified severity, without behavioral disturbance, psychotic disturbance, mood disturbance, and anxiety; D73.89 Other diseases of spleen; I10 Essential (primary) hypertension; E78.00 Pure hypercholesterolemia, unspecified; M19.90 Unspecified osteoarthritis, unspecified site; F17.200 Nicotine dependence, unspecified, uncomplicated; Z88.2 Allergy status to sulfonamides; Z79.899 Other long term (current) drug therapy; Z79.51 Long term (current) use of inhaled steroids; F41.9 Anxiety disorder, unspecified; F32.A Depression, unspecified
CPT/HCPCS: 36415; 80053; 81001; 83690; 85025; 96374; 99284-25; A9270; J2405; J7121

== ENCOUNTER 2021-07-05 05:47 | Emergency (ER) | payer MEDICARE ==
[~2021-07-05] VITALS: Ht 167.6 cm; Wt 68.5 kg
--- OUTSIDE RECORDS SUMMARY | 2021-07-05 05:48 | XMS ---
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 Zack VISIT COUNT (12 MO[address] [place] [address] TOTAL 5 NOTE: Visits indicate total known visits. ED/UCC VISIT TRACKING (12 MO.) 07/05/2021 05:47 [facility] TYPE: Emergency COMPLAINT: - ABD PAIN, NAUSEA 06/13/2021 06:18 [facility] TYPE: Emergency COMPLAINT: - ABD PAIN DIAGNOSES: - roasterman (current) use of inhaled steroids - Unspecified osteoarthritis, unspecified site - Gastritis, unspecified, without bleeding - Pure hypercholesterolemia, unspecified - Other senior care (current) drug therapy - Nicotine dependence, unspecified, uncomplicated - Allergy status to sulfonamides - Depression, unspecified - Essential (primary) hypertension - Unspecified dementia without behavioral disturbance - Other diseases of spleen - Anxiety disorder, unspecified - Altered mental status, unspecified 05/30/2021 11:46 [facility] TYPE: Emergency COMPLAINT: - ALTERED MENTAL STATUS 01/19/2021 16:27 [facility] TYPE: Emergency COMPLAINT: - ALTERED MENTAL STATUS DIAGNOSES: - Acquired absence of left breast and nipple - Essential (primary) hypertension - Acquired absence of both cervix and uterus - Other senior care (current) drug therapy - Nicotine dependence, unspecified, [...] unspecified, uncomplicated - Disorientation, unspecified - 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 INPATIENT VISIT TRACKING (12 MO.) 06/06/2021 19:36 [facility] TYPE: Observation COMPLAINT: - ALCOHOLIC GASTRITIS, ACUTE, WITHOUT BLEEDING DIAGNOSES: - Contact with and (suspected) exposure to COVID-19 - Dehydration - Nicotine dependence, unspecified, uncomplicated - Unspecified chronic bronchitis - Metabolic encephalopathy - Hyperlipidemia, unspecified - Essential (primary) hypertension - Anxiety disorder, unspecified - Allergy status to sulfonamides - Alcoholic gastritis without bleeding 05/31/2021 13:19 [facility] TYPE: Medical Surgical COMPLAINT: - STARVATION KETOACIDOSIS,GASTRITIS,INABILITY TO WRK DIAGNOSES: - 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
[2021-07-05] MEDS ORDERED: CARAFATE1 GM PO (06:48)
== END 2021-07-05 07:30 | disposition home or self-care (01) ==
LOC: ED 05:47
DX: K29.20 Alcoholic gastritis without bleeding (principal); I10 Essential (primary) hypertension; E78.00 Pure hypercholesterolemia, unspecified; M19.90 Unspecified osteoarthritis, unspecified site; F17.200 Nicotine dependence, unspecified, uncomplicated; Z88.2 Allergy status to sulfonamides; Z79.899 Other long term (current) drug therapy; Z79.51 Long term (current) use of inhaled steroids
CPT/HCPCS: 36415; 80053; 81001; 83690; 85025; 96374; 96375; 99284-25; C9113; J2270

== ENCOUNTER 2022-03-15 09:46 | Emergency (ER) | payer MEDICARE ==
[~2022-03-15] VITALS: Ht 167.6 cm; Wt 61.2 kg
[~2022-03-15 09:46] MED LIST changes: +CARAFATE1 GM PO
== END 2022-03-15 14:55 | disposition home or self-care (01) ==
LOC: ED 09:46
DX: K29.70 Gastritis, unspecified, without bleeding (principal); I10 Essential (primary) hypertension; E78.00 Pure hypercholesterolemia, unspecified; F17.200 Nicotine dependence, unspecified, uncomplicated; Z88.2 Allergy status to sulfonamides; Z79.899 Other long term (current) drug therapy
CPT/HCPCS: 36415; 74177; 80053; 81001; 83690; 85025; 96374; 96375; 99284-25; J1170; J2405; J2550; Q9967

== ENCOUNTER 2022-05-08 06:35 | Emergency (ER) | payer MEDICARE ==
[~2022-05-08] VITALS: Ht 167.6 cm; Wt 59.6 kg
--- NOTE | 2022-05-09 17:21 | EKG ---
[facility] [address] [place] [address] Signed Atrial-paced rhythm Inferior infarct , age undetermined Anteroseptal infarct , age undetermined Abnormal ECG When compared with ECG of 30-MAY-2021 19:21, Electronic atrial pacemaker has replaced Sinus rhythm Anteroseptal infarct is now present ST now depressed in Lateral leads Nonspecific T wave abnormality, worse in Lateral leads Confirmed by Rachel Pena MD () on 05/09/2022 5:21:39 PM Electronically Signed By: RACHEL PENA MD 05/09/22 1721 PATIENT NAME: ANDREA SY Electrocardiogram DATE OF : 52 PHYSICIAN: RACHEL PENA MD REPORT #: [id number] REPORT IS CONFIDENTIAL AND NOT TO BE RELEASED WITHOUT AUTHORIZATION
== END 2022-05-08 12:51 | disposition home or self-care (01) ==
LOC: ED 06:35
DX: R10.9 Unspecified abdominal pain (principal); E86.0 Dehydration; N17.9 Acute kidney failure, unspecified; I10 Essential (primary) hypertension; E78.00 Pure hypercholesterolemia, unspecified; M19.90 Unspecified osteoarthritis, unspecified site; F17.200 Nicotine dependence, unspecified, uncomplicated; Z88.2 Allergy status to sulfonamides; Z79.899 Other long term (current) drug therapy; Z20.822 Contact with and (suspected) exposure to COVID-19
CPT/HCPCS: 36415; 74176; 80048; 80053; 81003; 83690; 85025; 87502; 96360; 96361; 99284-25; A9270; J7030; U0003

== ENCOUNTER 2022-07-31 20:43 | Emergency (ER) | payer MEDICARE ==
[~2022-07-31] VITALS: Ht 167.6 cm; Wt 59.4 kg
--- NOTE | ~2022-07-31 | EKG ---
[facility] [address] [facility] [place], [place] [address] Draft EKG completed, results pending confirmation PATIENT NAME: ANDREA SY Electrocardiogram DATE OF : 52 PHYSICIAN: PRELIMINARY REPORT #: [id number] REPORT IS CONFIDENTIAL AND NOT TO BE RELEASED WITHOUT AUTHORIZATION
[~2022-07-31 20:43] MED LIST changes: +PRILOSEC OTC20 MG PO
[2022-08-01 00:03] VITALS: BP 107/63
== END 2022-08-01 00:04 | disposition home or self-care (01) ==
LOC: ED 20:43
DX: S32.591A Other specified fracture of right pubis, initial encounter for closed fracture (principal); W10.8XXA Fall (on) (from) other stairs and steps, initial encounter; I10 Essential (primary) hypertension; E78.00 Pure hypercholesterolemia, unspecified; M19.90 Unspecified osteoarthritis, unspecified site; F17.200 Nicotine dependence, unspecified, uncomplicated; Z88.2 Allergy status to sulfonamides; Z79.899 Other long term (current) drug therapy
CPT/HCPCS: 36415; 71045; 72170; 73552; 80053; 81003; 83735; 85025; 85610; 85730; 93005; 93010; 96374; 96375; 99284-25; 99406; A9270; G0480; J1885; J2405; J3010

== ENCOUNTER 2022-08-03 09:17 | Emergency (ER) | payer MEDICARE ==
[~2022-08-03] VITALS: Ht 167.6 cm; Wt 59.4 kg
--- OUTSIDE RECORDS SUMMARY | 2022-08-03 09:22 | XMS ---
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 Zack VISIT COUNT (12 MO.) [address] [place] [address] TOTAL 6 NOTE: Visits indicate total known visits. ED/UCC VISIT TRACKING (12 MO.) 08/03/2022 09:17 [facility] TYPE: Emergency COMPLAINT: - HIP PAIN 07/31/2022 20:45 [facility] TYPE: Emergency COMPLAINT: - RT HIP PAIN,RT SHOULDER PAIN DIAGNOSES: - Allergy status to sulfonamides - Essential (primary) hypertension - Fall (on) (from) other stairs and steps, initial encounter - Nicotine dependence, unspecified, uncomplicated - Other fdc (current) drug therapy - Other specified fracture of right pubis, initial encounter for closed fracture - Pain in right hip - Pure hypercholesterolemia, unspecified - Unspecified osteoarthritis, unspecified site 06/15/2022 09:49 [facility] TYPE: Emergency COMPLAINT: - ABDOMINAL PAIN DIAGNOSES: - Allergy status to sulfonamides - Essential (primary) hypertension - Nicotine dependence, unspecified, uncomplicated - Other terminal superintendent (current) drug therapy - Pain in right wrist - Unspecified abdominal pain - Unspecified dementia, unspecified severity, without behavioral disturbance, psychotic disturbance, mood disturbance, and anxiety 05/08/2022 06:36 [facility] TYPE: Emergency COMPLAINT: - DISORIENTED, SLURRED SPEECH DIAGNOSES: - Acute kidney failure, unspecified - Allergy status to sulfonamides - Contact with and (suspected) exposure to COVID-19 - Dehydration - Essential (primary) hypertension - Nicotine dependence, unspecified, uncomplicated - Other fdc (current) drug therapy - Pure hypercholesterolemia, unspecified - Unspecified abdominal pain - Unspecified abdominal pain - Unspecified osteoarthritis, unspecified site - Weakness 03/15/2022 09:47 [facility] TYPE: Emergency COMPLAINT: - ABD PAIN, VOMITING, HOT/COLD DIAGNOSES: - Allergy status to sulfonamides - Essential (primary) hypertension - Gastritis, unspecified, without bleeding - Nicotine dependence, unspecified, uncomplicated - Other terminal superintendent (current) drug therapy - Pure hypercholesterolemia, unspecified - Unspecified abdominal pain [facility] DIAGNOSES: - Unspecified abdominal pain - Unspecified kidney failure - Abdominal Pain INPATIENT VISIT TRACKING (12 MO.) No inpatient visits to display in this time frame [email or web address]
[2022-08-03] MEDS ORDERED: HYDROCODON-ACE1 EA10 PO (09:57)
[2022-08-03 10:29] VITALS: BP 124/48
== END 2022-08-03 10:30 | disposition home or self-care (01) ==
LOC: ED 09:17
DX: S32.591A Other specified fracture of right pubis, initial encounter for closed fracture (principal); W18.30XA Fall on same level, unspecified, initial encounter; I10 Essential (primary) hypertension; E78.00 Pure hypercholesterolemia, unspecified; M19.90 Unspecified osteoarthritis, unspecified site; F17.200 Nicotine dependence, unspecified, uncomplicated; Z88.2 Allergy status to sulfonamides; Z79.899 Other long term (current) drug therapy
CPT/HCPCS: 96374; 99284-25; J1885

== ENCOUNTER 2022-08-05 21:51 | Emergency (ER) | payer MEDICARE ==
[~2022-08-05] VITALS: Ht 167.6 cm; Wt 59.6 kg
[~2022-08-05 21:51] MED LIST changes: +HYDROCODON-ACE1 EA10 PO
--- OUTSIDE RECORDS SUMMARY | 2022-08-05 21:53 | XMS ---
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 Zack VISIT COUNT (12 MO.) [address] [place] [address] TOTAL 7 NOTE: Visits indicate total known visits. ED/UCC VISIT TRACKING (12 MO.) 08/05/2022 21:52 [facility] [place] TYPE: Emergency COMPLAINT: - AMS 08/03/2022 09:17 [facility] [place] TYPE: Emergency COMPLAINT: - HIP PAIN DIAGNOSES: - Allergy status to sulfonamides - Essential (primary) hypertension - Fall on same level, unspecified, initial encounter - Nicotine dependence, unspecified, uncomplicated - Other open hearth helper (current) drug therapy - Other specified fracture of right pubis, initial encounter for closed fracture - Pain in right hip - Pure hypercholesterolemia, unspecified - Unspecified osteoarthritis, unspecified site 07/31/2022 20:45 [facility] [place] TYPE: Emergency COMPLAINT: - RT HIP PAIN,RT SHOULDER PAIN DIAGNOSES: - Allergy status to sulfonamides - Essential (primary) hypertension - Fall (on) (from) other stairs and steps, initial encounter - Nicotine dependence, unspecified, uncomplicated - Other open hearth helper (current) drug therapy - Other specified fracture of right pubis, initial encounter for closed fracture - Pain in right hip - Pure hypercholesterolemia, unspecified - Unspecified osteoarthritis, unspecified site 06/15/2022 09:49 [facility] TYPE: Emergency COMPLAINT: - ABDOMINAL PAIN DIAGNOSES: - Allergy status to sulfonamides - Essential (primary) hypertension - Nicotine dependence, unspecified, uncomplicated - Other prison (current) drug therapy - Pain in right wrist - Unspecified abdominal pain - Unspecified dementia, unspecified severity, without behavioral disturbance, psychotic disturbance, mood disturbance, and anxiety 05/08/2022 06:36 [facility] TYPE: Emergency COMPLAINT: - DISORIENTED, SLURRED SPEECH DIAGNOSES: - Acute kidney failure, unspecified - Allergy status to sulfonamides - Contact with and (suspected) exposure to COVID-19 - Dehydration - Essential (primary) hypertension - Nicotine dependence, unspecified, uncomplicated - Other prison (current) drug therapy - Pure hypercholesterolemia, unspecified - Unspecified abdominal pain - Unspecified abdominal pain - Unspecified osteoarthritis, unspecified site - Weakness 03/15/2022 09:47 [facility] TYPE: Emergency COMPLAINT: - ABD PAIN, VOMITING, HOT/COLD DIAGNOSES: - Allergy status to sulfonamides - Essential (primary) hypertension - Gastritis, unspecified, without bleeding - Nicotine dependence, unspecified, uncomplicated - Other prison (current) drug therapy - Pure hypercholesterolemia, unspecified - Unspecified abdominal pain 09/09/2021 12:39 [facility] TYPE: Emergency DIAGNOSES: - Unspecified abdominal pain - Unspecified kidney failure - Abdominal Pain INPATIENT VISIT TRACKING (12 MO.) No inpatient visits to display in this time frame [id number]
[2022-08-06 01:03] VITALS: BP 144/67
== END 2022-08-06 01:03 | disposition short-term general hospital (02) ==
LOC: ED 21:51
DX: R41.82 Altered mental status, unspecified (principal); S32.592A Other specified fracture of left pubis, initial encounter for closed fracture; S32.591A Other specified fracture of right pubis, initial encounter for closed fracture; F10.10 Alcohol abuse, uncomplicated; E87.20 Acidosis, unspecified; R06.89 Other abnormalities of breathing; Z20.822 Contact with and (suspected) exposure to COVID-19; X58.XXXA Exposure to other specified factors, initial encounter; I10 Essential (primary) hypertension; E78.00 Pure hypercholesterolemia, unspecified; M19.90 Unspecified osteoarthritis, unspecified site; F17.200 Nicotine dependence, unspecified, uncomplicated; Z88.2 Allergy status to sulfonamides; Z79.899 Other long term (current) drug therapy
CPT/HCPCS: 31500; 36415; 36556; 36600; 51702; 70450; 71045; 74177; 80053; 82140; 82803; 85025; 86850; 86900; 86901; 87502; 94002; 99285-25; G0480; J2250; J2270; J3010; J7042; Q9967; U0003

== ENCOUNTER 2024-07-29 13:37 | Emergency (ER) | payer MEDICARE ==
[~2024-07-29] VITALS: Ht 167.6 cm; Wt 50.0 kg
[2024-07-29] MEDS ORDERED: MORPHINE SULFATE 4 MG/ML VIAL IV ONE (13:45)
[2024-07-29] MEDS ORDERED: ondansetron HCL 4 MG/2 ML VIAL IV ONE (13:45)
[2024-07-29 14:25] LABS: ALBUMIN 3.9 g/dL (3.4-5.0); ALBUMIN/GLOBULIN RATIO 1.5 (1.1-2.4); ANION GAP 16.2 (7-21); BILIRUBIN, TOTAL 0.6 mg/dL (0.2-1.0); BUN/CREATININE RATIO 11.2 (6.0-28.6); CALCIUM 9.2 mg/dL (8.5-10.1); CREATININE, SERUM 1.16 mg/dL (0.55-1.02); POTASSIUM 3.2 mmol/L (3.5-5.1); PROTEIN, TOTAL 6.5 g/dL (6.4-8.2)
[2024-07-29] MEDS ORDERED: SODIUM CHLORIDE 0.9% 1,000 ML IV PRN (14:45)
[2024-07-29 14:49] LABS: BASOPHILS 0.3 % (0.1-1.2); EOSINOPHILS 0 % (0.7-5.8); HEMATOCRIT 38.1 % (34.1-44.9); HEMOGLOBIN 12.8 g/dL (11.2-15.7); LYMPHOCYTES 11.6 % (19.3-51.7); MCH 30.1 PG (25.6-32.2); MCHC 33.6 g/dL (32.2-35.5); MCV 89.6 fL (79.4-94.8); MONOCYTES 2.2 % (4.7-12.5); NEUTROPHILS 85.3 % (34.0-71.1); PLATELET COUNT 246 K/uL (182-369); RBC 4.25 M/uL (3.93-5.22)
[2024-07-29 16:06] LABS: BILIRUBIN, URINE NEGATIVE (negative); BLOOD/HGB, URINE TRACE-I (Negative); KETONE, URINE TRACE (Negative); LEUK ESTERASE, URINE SMALL (negative); NITRITE, URINE NEGATIVE (negative)
[2024-07-29 16:11] LABS: WHITE BLOOD CELLS, URINE >50 /HPF (0-5)
[2024-07-29 16:12] LABS: BACTERIA, URINE 4+ /hpf (negative); CASTS, URINE NONE SEEN \\lpf; COLLECTION TYPE, URINE CLEAN CATCH; CRYSTALS, URINE NONE SEEN (0-1+); EPITHELIAL CELLS, URINE SQUAMOUS 2+ /lpf (0-1+); RED BLOOD CELLS, URINE 0-1 /hpf (0-5); REFLEX CULTURE, URINE No (No)
[2024-07-29] MEDS ORDERED: ONDANSETRON ODT8 MG PO (17:27)
[2024-07-29 17:55] VITALS: BP 98/76
== END 2024-07-29 17:40 | disposition home or self-care (01) ==
LOC: ED 13:37
PROVIDERS: Emergency Medicine
DX: R11.2 Nausea with vomiting, unspecified (principal); E78.00 Pure hypercholesterolemia, unspecified; I10 Essential (primary) hypertension; F17.200 Nicotine dependence, unspecified, uncomplicated; Z79.899 Other long term (current) drug therapy; Z88.2 Allergy status to sulfonamides
CPT/HCPCS: 36415; 74176; 80053; 81001; 83605; 83690; 85025; 96361; 96374; 96375; 99284-25; J2270; J2405; J7030